=== PATIENT | female | born 1990 | race Caucasian/White ===

== ENCOUNTER 2021-01-14 17:24 | Emergency (ER) | payer OTHER, SELFPAY ==
[2021-01-14 19:29] LABS: MANUAL DIFF FLAG NO
[2021-01-14 19:34] LABS: Basophils Percent Auto 0.3 % (0-2); Eosinophils Percent Auto 0.2 % (0-4); Hematocrit 43.7 % (37.0-47.0); Hemoglobin 14.4 g/dl (12.0-16.0); Imm Gran Abs Auto 0.04 X10*3/uL (0.00-0.03); Imm Gran Pct Auto 0.4 % (0.0-0.4); Lymphocytes Absolute Auto 2.2 X10*3/uL (1.2-4.9); Lymphocytes Percent Auto 22.5 % (20-40); Mean Corpuscular Hemoglobin 29.2 pg (27.0-33.0); Mean Corpuscular Volume 88.6 fL (80.0-98.0); Mean Platelet Volume 10.1 fL (9.4-12.3); Monocytes Absolute Auto 0.3 X10*3/uL (0.1-1.2); Monocytes Percent Auto 3.1 % (2-11); Neutrophils Percent Auto 73.5 % (45-73); Platelet Count 385 X10*3/uL (160-400); Red Blood Count 4.93 X10*6/uL (4.20-5.50); Red Cell Distribution Width 13.6 % (11.0-16.0); White Blood Count 9.6 X10*3/uL (4.8-10.8)
[2021-01-14 19:50] LABS: Alanine Aminotransferase 22 U/L (0-31); Albumin Level 4.9 g/dL (3.5-5.0); Alkaline Phosphatase 77 U/L (39-117); Anion Gap 16 (12-20); Aspartate Amino Transferase 20 U/L (5-31); Bilirubin Direct 0.2 mg/dL (0.0-0.5); Bilirubin Total 0.3 mg/dL (0.0-1.0); Blood Urea Nitrogen 9 mg/dL (9-16); Calcium 9.9 mg/dL (8.4-10.2); Carbon Dioxide 25 mmol/L (22-29); Chloride 103 mmol/L (96-108); Estimated Glomerular Filt Rate > 60; Glucose Random 92 mg/dL (60-115); Lipase 12 U/L (8-78); Potassium 4.5 mmol/L (3.3-5.1); Sodium 139 mmol/L (135-145); Total Protein 8.1 g/dL (6.5-8.0)
[2021-01-14 20:53] VITALS: BP 137/72; PULSE 70; RESP 18; TEMP 36.9; O2SAT 98; BMI 33.8
--- NOTE | 2021-01-14 21:49 | ED.NAVMDI ---
HPI - Nausea/Vomiting/Diarrhea General Chief complaint: Nausea/Vomiting/Diarrhea Stated complaint: Vomiting/Preg Time Seen by Provider: 01/14/21 21:31 Source: patient Mode of arrival: ambulatory Limitations: no limitations History of Present Illness HPI Narrative: 30-year-old female here with complaints of vomiting for the last 2 days. Patient took a home test which is positive. Her last period was about 4 weeks ago. Patient tells me she has an unknown amount of pregnancies but no living children. She denies any vaginal bleeding, abdominal pain, vaginal discharge or cramping. Associated nausea: Yes Related Data Previous Rx's Medication Instructions Recorded ondansetron 4 mg disintegrating 4 mg PO Q6H PRN #10 tab 01/14/21 tablet prenat.vits,boaz,vzb-[id number]-[id number] 1 tab PO DAILY #30 tab 01/14/21 Allergies Allergy/AdvReac Type Severity Reaction Status Date / Time No Known Allergies Allergy Verified 01/14/21 21:36 Review of Systems Review of Systems: Yes all other systems are reviewed and are negative Constitutional: Constitutional: Reports no additional constitutional complaints, Denies body ache(s), Denies chills, Denies fever(s), Denies headache(s) and Denies weakness Eyes: Eyes: Reports no additional eye complaints and Denies change in vision ENT: Reports system reviewed and no additional complaints, except as documented, Denies dizziness, Denies headache(s), Denies nasal congestion, Denies nasal discharge and Denies neck pain Cardiovascular: Cardiovascular: Reports no additional cardiovascular complaints, Denies chest pain, Denies leg edema and Denies dyspnea Respiratory: Respiratory: Reports no additional respiratory complaints, Denies cough and Denies dyspnea Gastrointestinal: Gastrointestinal: Reports no additional gastrointestinal complaints, Denies abdominal pain, Denies diarrhea, Reports nausea and Reports vomiting Genitourinary: Genitourinary: Reports no additional female genitourinary complaints and Denies urinary incontinence Musculoskeletal: Musculoskeletal: Reports no additional musculoskeletal complaints, Denies back pain, Denies arthralgias, Denies joint swelling, Denies neck pain, Denies numbness and Denies tingling Integumentary/Breasts: Skin/Breast: Reports system reviewed and no additional complaints, except as docu and Denies rash Neurologic: Reports system reviewed and no additional complaints, except as documented, Denies Abnormal speech present, Denies dizziness, Denies headache(s), Denies numbness, Denies tingling and Denies weakness PMFSH Past Medical History Attestation statement: The following information was validated with the patient. Source: old records reviewed and nursing notes reviewed Medical History Drug abuse Social History Social History Patient Tobacco Use Status: Current everyday Tobacco user Use of substances other than those prescribed or required for medical reasons: No Advance Directives: No Patient : Yes Physical Exam Vital Signs: Vital Signs: Last Vital Signs Temp 98.6 F 01/14/21 23:01 Pulse 63 01/14/21 23:01 Resp 18 01/14/21 23:01 BP 128/52 L 01/14/21 23:01 Pulse Ox 100 01/14/21 23:01 Body Mass Index 33.8 Const: General: cooperative, healthy appearing, comfortable and no acute distress Orientation/consciousness: patient oriented x3 Limitations: no limitations HENMT: Head: Yes normal to inspection Ears: hearing grossly normal bilaterally General nose exam: Normal external nose present Face and sinus: Yes normal facial exam Mouth: Normal oral and palatal mucosa present Throat: Yes posterior oropharynx normal Eyes: General: appearance normal, both eyes and all related structures Pupils: Equal, round and reactive pupils present Neck: Neck: Yes normal visual inspection Chest: Chest palpation & inspection: normal inspection of the chest Resp: Effort & Inspection: normal respiratory effort Auscultation: clear to auscultation bilaterally Cardio: Rate: regular rate Rhythm: regular rhythm Peripheral pulses: Peripheral pulses 2+ throughout GI: Inspection: Yes normal to inspection Palpation (GI): Soft to palpation and nontender Auscultation: normal bowel sounds Back/Spine/Pelvis: Thoracic/Lumbar Spine: thoracic and lumbar spine normal to inspection Skin: General skin exam: no rashes or lesions noted Neuro: General: patient oriented x3, no focal motor deficits and normal sensation to monofilament Cranial nerves: Yes CN's II-XII intact bilaterally and Yes Equal, round and reactive pupils present Cognition (Neuro): normal cognition Speech: No Abnormal speech present Gait exam (Neuro): Normal gait present Motor exam (neuro): 5/5 motor strength present throughout Extrem: General: Yes normal to inspection Course Course Course Narrative: 30-year-old female here with complaints of vomiting for the last few days. Took test at home which is positive. Last menstrual cycle about 4 weeks ago. No abdominal pain or bleeding. Will check labs, UA, urine . Will place P IV and give normal saline bolus and Zofran and reassess 2350- reviewed labs are unremarkable. Urine shows 40 of ketones and so the patient received a L of fluid. She is tolerating p.o. and is feeling much improved. No need for imaging as the patient has no or plans of abdominal pain or vaginal bleeding. She can follow-up outpatient with OBGYN. Reviewed worrisome signs and symptoms of when to return to the emergency department. Comfortable discharge home. MDM - Nausea/Vomiting/Diarrhea Medical Records Attestation: I reviewed the patient's medical records. Lab Data Attestation: I reviewed the patient's lab results. Result diagrams: 01/14/21 19:13 01/14/21 19:13 Labs: Lab Results 01/14/21 01/14/21 01/14/21 Range/Units 19:13 19:13 19:13 WBC 9.6 (4.8-10.8) X10*3/uL RBC 4.93 (4.20-5.50) X10*6/uL Hgb 14.4 (12.0-16.0) g/dl Hct 43.7 (37.0-47.0) % MCV 88.6 (80.0-98.0) fL MCH 29.2 (27.0-33.0) pg MCHC 33.0 (31.0-35.0) g/dl RDW 13.6 (11.0-16.0) % Plt Count 385 (160-400) X10*3/uL MPV 10.1 (9.4-12.3) fL Immature Gran % (Auto) 0.4 (0.0-0.4) % Neut % (Auto) 73.5 H (45-73) % Lymph % (Auto) 22.5 (20-40) % [place] % (Auto) 3.1 (2-11) % Eos % (Auto) 0.2 (0-4) % Baso % (Auto) 0.3 (0-2) % Lymph # (Auto) 2.2 (1.2-4.9) X10*3/uL [place] # (Auto) 0.3 (0.1-1.2) X10*3/uL Eos # (Auto) 0.0 (0.0-0.4) X10*3/uL Baso # (Auto) 0.0 (0.0-0.2) X10*3/uL Abs Immat Gran (auto) 0.04 H (0.00-0.03) X10*3/uL Absolute Neuts (auto) 7.0 (2.0-8.3) x10*3/uL Absolute Nucleated RBC 0.000 (0.0-0.012) X10*3/uL Nucleated RBC % (auto) 0.0 (0.0-0.2) /100WBC Sodium 139 (135-145) mmol/L Potassium 4.5 (3.3-5.1) mmol/L Chloride 103 (96-108) mmol/L Carbon Dioxide 25 (22-29) mmol/L Anion Gap 16 (12-20) BUN 9 (9-16) mg/dL Creatinine 0.77 (0.5-1.4) mg/dL Estim Creat Clear Calc TNP Estimated GFR > 60 Random Glucose 92 (60-115) mg/dL Estimat Average Glucose Cancelled Hemoglobin A1c % Cancelled Calcium 9.9 (8.4-10.2) mg/dL Total Bilirubin 0.3 (0.0-1.0) mg/dL Direct Bilirubin 0.2 (0.0-0.5) mg/dL AST 20 (5-31) U/L ALT 22 (0-31) U/L Alkaline Phosphatase 77 (39-117) U/L Total Protein 8.1 H (6.5-8.0) g/dL Albumin 4.9 (3.5-5.0) g/dL Lipase 12 (8-78) U/L Beta HCG, Quant 11539 mIU/mL Urine Color Urine Appearance Urine pH (5.0-8.0) Ur Specific [place] (1.005-1.025) Urine Protein (NEG-TRACE) MG/DL Urine Glucose (UA) (NEG) MG/DL Urine Ketones (NEG) MG/DL Urine Blood (NEG) Urine Nitrite (NEG) Ur Leukocyte Esterase (NEG) Urine Test (NEGATIVE) 01/14/21 01/14/21 Range/Units 23:33 23:33 WBC (4.8-10.8) X10*3/uL RBC (4.20-5.50) X10*6/uL Hgb (12.0-16.0) g/dl Hct (37.0-47.0) % MCV (80.0-98.0) fL MCH (27.0-33.0) pg MCHC (31.0-35.0) g/dl RDW (11.0-16.0) % Plt Count (160-400) X10*3/uL MPV (9.4-12.3) fL Immature Gran % (Auto) (0.0-0.4) % Neut % (Auto) (45-73) % Lymph % (Auto) (20-40) % [place] % (Auto) (2-11) % Eos % (Auto) (0-4) % Baso % (Auto) (0-2) % Lymph # (Auto) (1.2-4.9) X10*3/uL [place] # (Auto) (0.1-1.2) X10*3/uL Eos # (Auto) (0.0-0.4) X10*3/uL Baso # (Auto) (0.0-0.2) X10*3/uL Abs Immat Gran (auto) (0.00-0.03) X10*3/uL Absolute Neuts (auto) (2.0-8.3) x10*3/uL Absolute Nucleated RBC (0.0-0.012) X10*3/uL Nucleated RBC % (auto) (0.0-0.2) /100WBC Sodium (135-145) mmol/L Potassium (3.3-5.1) mmol/L Chloride (96-108) mmol/L Carbon Dioxide (22-29) mmol/L Anion Gap (12-20) BUN (9-16) mg/dL Creatinine (0.5-1.4) mg/dL Estim Creat Clear Calc Estimated GFR Random Glucose (60-115) mg/dL Estimat Average Glucose Hemoglobin A1c % Calcium (8.4-10.2) mg/dL Total Bilirubin (0.0-1.0) mg/dL Direct Bilirubin (0.0-0.5) mg/dL AST (5-31) U/L ALT (0-31) U/L Alkaline Phosphatase (39-117) U/L Total Protein (6.5-8.0) g/dL Albumin (3.5-5.0) g/dL Lipase (8-78) U/L Beta HCG, Quant mIU/mL Urine Color YELLOW Urine Appearance CLOUDY Urine pH 6.0 (5.0-8.0) Ur Specific [place] >= 1.030 H (1.005-1.025) Urine Protein TRACE (NEG-TRACE) MG/DL Urine Glucose (UA) NEG (NEG) MG/DL Urine Ketones 40 (NEG) MG/DL Urine Blood NEG (NEG) Urine Nitrite NEG (NEG) Ur Leukocyte Esterase NEG (NEG) Urine Test POSITIVE H (NEGATIVE) Discharge Plan Discharge Clinical Impression: Patient Disposition: Home, Self-Care Instructions: (ED) Additional Instructions: Tylenol only for pain start a vitamin start with clear liquids Prescriptions: Jamari salas.vits,boaz,[id number] Tablet 1 tab PO DAILY Qty: 30 RF: 0 ondansetron 4 mg tablet,disintegrating 4 mg PO Q6H PRN (Reason: nausea and vomiting) Qty: 10 RF: 0 Referrals: Physician,Unknown J [Primary Care Provider] - 2 days Eben Ji MD [Physician] - 2 days
[2021-01-14] MEDS: 0.9 % Sodium Chloride 1,000 ML 999 ML IV (22:23)
[2021-01-14] MEDS: ondansetron HCL 4 MG/2 ML VIAL IVPUSH (22:23)
[2021-01-14 23:01] VITALS: BP 128/52; PULSE 63; RESP 18; TEMP 37; O2SAT 100
[2021-01-14 23:40] LABS: Appearance Urine CLOUDY; Color Urine YELLOW; Glucose Urine UA NEG (NEG); Leukocyte Esterase Urine NEG (NEG); Nitrite Urine NEG (NEG); Specific Gravity - Urine >= 1.030 (1.005-1.025); UPreg QC Valid YES; Urine Blood NEG (NEG); Urine Ketones 40 MG/DL (NEG); Urine Pregnancy POSITIVE (NEGATIVE); Urine Protein TRACE MG/DL (NEG-TRACE)
== END 2021-01-15 00:55 | disposition home or self-care (01) ==
PROVIDERS: Nurse Practitioner Family; Emergency Provider Emergency Medicine
DX: Z32.01 Encounter for pregnancy test, result positive (principal); R11.2 Nausea with vomiting, unspecified; F17.200 Nicotine dependence, unspecified, uncomplicated
CPT/HCPCS: 36415; 80048; 80076; 81003; 81025; 83690; 84702; 85025; 96361; 96374; 99284; J2405

== ENCOUNTER 2023-05-28 17:23 | Inpatient (IN) | payer MEDICARE, SELFPAY ==
[2023-05-28 18:12] VITALS: BP 163/89; PULSE 55; RESP 16; TEMP 36.8; O2SAT 99; BMI 22.9
--- NOTE | 2023-05-28 19:03 | PC.NURSE ---
patient appears to remain at rest hasnt given samples yet, unusual sound emenates from room, will continue to assess.
--- NOTE | 2023-05-28 19:48 | ED.GENADULT ---
HPI - General Adult General Chief complaint: Psychiatric Symptoms Stated complaint: crisis eval, wants to hurt herself Time Seen by Provider: 05/28/23 18:13 Source: patient Mode of arrival: ambulatory Limitations: no limitations History of Present Illness HPI narrative: 32-year-old female with past medical history of bipolar and substance abuse presents to the ED for suicidal and also randomly going to people course not answer many questions. Patient was seen at [facility] for similiar presentsation and was discharged yesterday. As per patient's sister patient started having symptoms when her boyfriend became sick and sepsis in hospital. Patient's psych meds and does not follow-up with a therapist. She states patient also IV drug use Related Data Previous Rx's ?Medication ?Instructions ?Recorded ondansetron 4 mg disintegrating 4 mg PO Q6H PRN nausea and 01/14/21 tablet vomiting #10 tabs prenat.vits,boaz,jhk-mxkv-cjmxp 1 tab PO DAILY #30 tabs 01/14/21 Allergies Allergy/AdvReac Type Severity Reaction Status Date / Time No Known Allergies Allergy Verified 05/28/23 18:13 Review of Systems Review of Systems: Aggressive bipolar manic. Going into random cars Yes all other systems are reviewed and are negative [facility] Past Medical History Medical History (Updated 05/30/23 @ 15:58 by James Araya MD) Drug abuse Social History Social History (Updated 05/29/23 @ 23:05 by Quentin Bah RN) Household Members: None Housing: Homeless Do you presently have visiting nurse or other home services: No Alcohol intake: current Alcohol intake frequency: does not drink Patient Tobacco Use Status: Current everyday Tobacco user Tobacco use type: Cigarette Smoked in Last 30 Days: Yes e-Cigarette/Vaping Use: Never Used Patient Interested in Nicotine Replacement: Yes Patient Given Instructions on How to Stop Smoking: No Second Hand Smoke Exposure: No Use of substances other than those prescribed or required for medical reasons: Yes Substance Use Type: Crack/Cocaine and Heroin Substance Use Frequency: Daily Last Used Substance: Days (ago) Currently Displaying Signs/Symptoms of Drug Intoxication Withdrawal: Yes Any prior treatment program specific to substance use: Yes Have you been hit, kicked, punched, or otherwise hurt by someone within the past year? If so, by whom?: No Do you feel safe in your current relationship?: No Current Relationship Is there a partner from a previous relationship who is making you feel unsafe now?: No Are you made to feel afraid or neglected: No Advance Directives: No Advance Directives Information Provided: No Do you have thoughts of harming others: None Do you have a plan to hurt others: No Plan Recently lost weight without trying: Unsure Eating poorly because of decreased appetite: No Nutrition Risks: No Nutritional Risk Patient : No : No Poor oral hygiene: No Physical Exam ED Vital Signs: Vital Signs - 24 hr 05/28/23 18:12 05/29/23 05:49 05/29/23 07:15 Temperature 98.2 F Pulse Rate 55 Respiratory Rate 16 16 20 Blood Pressure 163/89 H Pulse Oximetry 99 Oxygen Delivery Method Room Air 05/29/23 08:54 Temperature 98.6 F Pulse Rate 53 Respiratory Rate 14 Blood Pressure 142/72 H Pulse Oximetry 95 Oxygen Delivery Method Room Air BMI result Body Mass Index 22.9 Const General: cooperative, healthy appearing, comfortable, no acute distress, well developed, alert, awake and Physically active [facility] Head: Yes normal to inspection, Yes No palpable skull fracture present, Yes normocephalic and Yes atraumatic Eyes General: appearance normal, both eyes and all related structures Neck Neck: Yes normal visual inspection, Yes full ROM, Yes no lymphadenopathy, Yes no meningeal signs, Yes trachea midline, Yes supple, No anterior neck swelling and No tender Chest Chest palpation & inspection: normal inspection of the chest and normal palpation of entire chest wall Resp Effort & Inspection: normal respiratory effort and able to speak in complete sentences Auscultation: clear to auscultation bilaterally Cardio Jugular venous distension: no JVD Heart sounds: S1 normal heart sound present and S2 normal heart sound present GI Inspection: Yes normal to inspection Palpation (GI): Soft to palpation, not firm, nontender, no guarding and not rigid General: No CVA tenderness and Yes no CVA tenderness Back/Spine/Pelvis Back: no CVA tenderness, No CVA tenderness and No back tenderness Skin General skin exam: no rashes or lesions noted, elasticity normal and turgor normal Neuro Other: internally preoccupied. General: gait normal, tone normal, moves all extremities, Normal light touch and pain sensation, no meningeal signs, no focal motor deficits, CN's II-XI intact bilaterally and normal sensation to monofilament Extrem General: Yes normal to inspection, Yes full ROM and Yes capillary refill normal Psych Other: Patient seems preoccupied and manic. Patient refused to me I can not Appearance: grossly normal and well kempt Course Course Course Narrative: Reevaluation(s) Reevaluation #1: The patient is a 32-year-old female being held in our Behavioral pod awaiting inpatient psychiatric hospitalization. The patient has been seen by our care team and they have recommended inpatient hospitalization. The patient has seemed disorganized and behaving bizarrely. During the day today the patient has been very quiet with no complaints. Vital signs have been stable. The patient has been afebrile. The patient was quiet and has no complaints. We will continue current management awaiting disposition by the care team. Time: 15:24 Medications Administered Generic Name Dose Route Start Last Admin Trade Name Freq PRN Reason Stop Dose Admin Acetaminophen 650 mg 05/29/23 16:45 05/30/23 10:12 Acetaminophen 325 Mg Tablet PO 650 mg Q6H PRN Administration Headache/Pain Mild Scale (1-3) Al Hydroxide/Mg Hydroxide 30 ml 05/29/23 16:45 05/30/23 08:48 Magnesium Hydrox/Alum Hydrox 30 Ml Oral.Susp PO 30 ml Q6H PRN Administration Heartburn/Nausea Clonidine HCl 0.1 mg 05/29/23 16:50 05/30/23 20:06 Clonidine Hcl 0.1 Mg Tablet PO 0.1 mg BID PRN Administration withdrawal Protocol Folic Acid 1 mg 05/30/23 09:00 05/30/23 08:47 Folic Acid 1 Mg Tablet PO 1 mg DAILY NATALY Administration Haloperidol 5 mg 05/29/23 16:49 05/30/23 14:27 Haloperidol 5 Mg Tablet PO 5 mg Q4H PRN Administration valerie,psychosis,agitation Hydroxyzine HCl 50 mg 05/30/23 13:49 05/30/23 20:06 Hydroxyzine Hcl 50 Mg Tablet PO 50 mg Q6H PRN Administration Anxiety Lorazepam 1 mg 05/29/23 16:54 05/30/23 20:05 Lorazepam 1 Mg Tablet PO 1 mg Q4H PRN Administration severe anxiety Multivitamins/Vitamin C 1 tab 05/30/23 09:00 05/30/23 08:47 Multivitamin Tablet PO 1 tab DAILY NATALY Administration Nicotine Polacrilex 4 mg 05/30/23 00:55 05/30/23 10:36 Nicotine Polacrilex 2 Mg Gum BUCCAL 4 mg Q2H PRN Administration Nicotine Cravings Quetiapine Fumarate 100 mg 05/30/23 21:00 05/30/23 20:06 Quetiapine Fumarate 100 Mg Tablet PO 100 mg BEDTIME NATALY Administration Thiamine HCl 100 mg 05/30/23 09:00 05/30/23 08:47 Thiamine Hcl 100 Mg Tablet PO 100 mg DAILY NATALY Administration Trazodone HCl 50 mg 05/29/23 16:45 05/30/23 20:05 Trazodone Hcl 50 Mg Tablet PO 50 mg BEDTIME MRX1 PRN Administration Insomnia Discontinued Medications Generic Name Dose Route Start Last Admin Trade Name Freq PRN Reason Stop Dose Admin Clonidine HCl 0.2 mg 05/30/23 13:48 05/30/23 14:21 Clonidine Hcl 0.2 Mg Tablet PO 05/30/23 13:49 0.2 mg ONCE ONE Administration Protocol Haloperidol 5 mg 05/29/23 01:45 05/29/23 01:49 Haloperidol 5 Mg Tablet PO 05/29/23 01:46 5 mg ONCE ONE Administration Hydroxyzine HCl 25 mg 05/29/23 16:45 05/30/23 04:38 Hydroxyzine Hcl 25 Mg Tablet PO 25 mg Q6H PRN Administration Anxiety Hydroxyzine HCl 50 mg 05/30/23 13:48 05/30/23 14:21 Hydroxyzine Hcl 50 Mg Tablet PO 05/30/23 13:49 50 mg ONCE ONE Administration Lorazepam 2 mg 05/28/23 22:12 05/28/23 22:15 Lorazepam 1 Mg Tablet PO 05/28/23 22:13 2 mg ONCE ONE Administration Lorazepam 2 mg 05/29/23 01:46 05/29/23 01:48 Lorazepam 1 Mg Tablet PO 05/29/23 01:47 2 mg ONCE ONE Administration Methadone HCl 40 mg 05/30/23 14:30 05/30/23 14:21 Methadone Hcl 20 Mg/2 Ml Oral.Conc PO 05/30/23 14:31 40 mg DAILY@1430 NATALY Administration Nicotine 21 mg 05/29/23 17:35 05/29/23 18:16 Nicotine 21 Mg Patch.Td24 TRANSDERMA 05/29/23 17:36 21 mg ONCE ONE Administration Nicotine Polacrilex 2 mg 05/29/23 17:35 05/29/23 18:15 Nicotine Polacrilex 2 Mg Gum BUCCAL 05/29/23 17:36 2 mg ONCE ONE Administration Medical Decision Making Medical Decision Making [facility] Narrative: 32-year-old female with bipolar noncompliant with psych meds, noncompliant with has history of substance abuse noted having some manic symptoms when her boyfriend admitted for sepsis. Sister states patient is going into random cares. Sister states when patient gets triggered or high stress in her life she presents with this episode. Patient was seen yesterday by [facility] with similar presentation and discharged. As per reviewed notes care team evaluated patient and recommends substance abuse placement but patient refused. Patient is not suicidal or homicidal. White blood cell [place] [facility] [place] [id number]. [facility] states in notes patient's bizarre psychotic behavior was due to drug abuse. At [facility] she admitted to use cocaine and heroin for the past 48 hours. This was on 05/28/2023. At [facility] recommend patient taking Vistaril 50 mg p.o. q.6 p.r.n., trazodone 50 mg p.o. daily at bedtime and Seroquel 50 mg p.o. q.6 p.r.n. for agitation. [facility] also recommended in the notes Thorazine 50 mg p.o. IM q.6 p.r.n. for severe agitation. Patient awaiting care team evaluation. Differential Diagnosis Differential Diagnoses: The differential diagnosis associated with the presentation includes (Substance induced psychosis, manic, bipolar) Admission/Observation Consideration of admission/observation: Escalation of care including admission/observation considered Consult Healthcare Provider Management of the patient was discussed with: Film Color Tester ([place]) Lab Data 05/29/23 00:18 05/29/23 00:18 Labs: Lab Results 05/28/23 05/28/23 05/29/23 Range/Units 19:59 20:22 00:18 WBC 15.7 H (4.8-10.8) X10*3/uL RBC 5.00 (4.20-5.50) X10*6/uL Hgb 14.3 (12.0-16.0) g/dl Hct 41.4 (37.0-47.0) % MCV 82.8 (80.0-98.0) fL MCH 28.6 (27.0-33.0) pg MCHC 34.5 (31.0-35.0) g/dl RDW 13.4 (11.0-16.0) % Plt Count 490 H D (160-400) X10*3/uL MPV 9.8 (9.4-12.3) fL Immature Gran % (Auto) 1.4 H (0.0-0.4) % Neut % (Auto) 64.9 (45-73) % Lymph % (Auto) 26.2 (20-40) % [place] % (Auto) 7.0 (2-11) % Eos % (Auto) 0.1 (0-4) % Baso % (Auto) 0.4 (0-2) % Lymph # (Auto) 4.1 (1.2-4.9) X10*3/uL [place] # (Auto) 1.1 (0.1-1.2) X10*3/uL Eos # (Auto) 0.0 (0.0-0.4) X10*3/uL Baso # (Auto) 0.1 (0.0-0.2) X10*3/uL Abs Immat Gran (auto) 0.22 H (0.00-0.03) X10*3/uL Absolute Neuts (auto) 10.2 H (2.0-8.3) x10*3/uL Absolute Nucleated RBC 0.000 (0.0-0.012) X10*3/uL Nucleated RBC % (auto) 0.0 (0.0-0.2) /100WBC Sodium 141 (135-145) mmol/L Potassium 4.1 (3.3-5.1) mmol/L Chloride 106 (96-108) mmol/L Carbon Dioxide 21 L (22-29) mmol/L Anion Gap 18 (12-20) BUN 23 H (9-16) mg/dL Creatinine 0.70 (0.5-1.4) mg/dL Estim Creat Clear Calc 119.4 Estimated GFR > 60 Random Glucose 93 (60-115) mg/dL Calcium 9.5 (8.4-10.2) mg/dL Total Bilirubin 0.4 (0.0-1.0) mg/dL AST 29 (5-31) U/L ALT 15 (0-31) U/L Alkaline Phosphatase 61 (39-117) U/L Total Protein 8.1 H (6.5-8.0) g/dL Albumin 4.6 (3.5-5.0) g/dL Urine Color Urine Appearance Urine pH (5.0-9.0) Ur Specific Starlight (1.005-1.025) Urine Protein (Neg-Trace) mg/dL Urine Glucose (UA) (Negative) mg/dL Urine Ketones (Negative) mg/dL Urine Blood (Negative) Urine Nitrite (Negative) Ur Leukocyte Esterase (Negative) Urine RBC (0-2) /HPF Urine WBC (0-5) /HPF Ur Squamous Epith Cells (0-2) /HPF Calcium Oxalate Crystal Urine Bacteria (None Seen) Hyaline Casts (0-2) /LPF Urine Opiates Screen (Not Detect) Urine Fentanyl Screen (Not Detect) Ur Barbiturates Screen (Not Detect) Ur Phencyclidine Scrn (Not Detect) Ur Amphetamines Screen (Not Detect) U Benzodiazepines Scrn (Not Detect) Urine Cocaine Screen (Not Detect) U Marijuana (THC) Screen (Not Detect) Ethyl Alcohol < 10 mg/dL COVID-19 ([facility]IA[facility]) Cancelled Negative COVID-19 Clin Com Cancelled See Note 05/29/23 05/29/23 Range/Units 11:18 11:19 WBC (4.8-10.8) X10*3/uL RBC (4.20-5.50) X10*6/uL Hgb (12.0-16.0) g/dl Hct (37.0-47.0) % MCV (80.0-98.0) fL MCH (27.0-33.0) pg MCHC (31.0-35.0) g/dl RDW (11.0-16.0) % Plt Count (160-400) X10*3/uL MPV (9.4-12.3) fL Immature Gran % (Auto) (0.0-0.4) % Neut % (Auto) (45-73) % Lymph % (Auto) (20-40) % [place] % (Auto) (2-11) % Eos % (Auto) (0-4) % Baso % (Auto) (0-2) % Lymph # (Auto) (1.2-4.9) X10*3/uL [place] # (Auto) (0.1-1.2) X10*3/uL Eos # (Auto) (0.0-0.4) X10*3/uL Baso # (Auto) (0.0-0.2) X10*3/uL Abs Immat Gran (auto) (0.00-0.03) X10*3/uL Absolute Neuts (auto) (2.0-8.3) x10*3/uL Absolute Nucleated RBC (0.0-0.012) X10*3/uL Nucleated RBC % (auto) (0.0-0.2) /100WBC Sodium (135-145) mmol/L Potassium (3.3-5.1) mmol/L Chloride (96-108) mmol/L Carbon Dioxide (22-29) mmol/L Anion Gap (12-20) BUN (9-16) mg/dL Creatinine (0.5-1.4) mg/dL Estim Creat Clear Calc Estimated GFR Random Glucose (60-115) mg/dL Calcium (8.4-10.2) mg/dL Total Bilirubin (0.0-1.0) mg/dL AST (5-31) U/L ALT (0-31) U/L Alkaline Phosphatase (39-117) U/L Total Protein (6.5-8.0) g/dL Albumin (3.5-5.0) g/dL Urine Color Dark Yellow Urine Appearance Cloudy Urine pH 6.0 (5.0-9.0) Ur Specific Starlight >= 1.030 H (1.005-1.025) Urine Protein 30 (1+) H (Neg-Trace) mg/dL Urine Glucose (UA) Negative (Negative) mg/dL Urine Ketones 40 (Negative) mg/dL Urine Blood Negative (Negative) Urine Nitrite Negative (Negative) Ur Leukocyte Esterase Trace H (Negative) Urine RBC 0-2 (0-2) /HPF Urine WBC 0-5 (0-5) /HPF Ur Squamous Epith Cells 6-10 (0-2) /HPF Calcium Oxalate Crystal Present Urine Bacteria 4+ (None Seen) Hyaline Casts 0-2 (0-2) /LPF Urine Opiates Screen Not Detected (Not Detect) Urine Fentanyl Screen POSITIVE H (Not Detect) Ur Barbiturates Screen Not Detected (Not Detect) Ur Phencyclidine Scrn Not Detected (Not Detect) Ur Amphetamines Screen Not Detected (Not Detect) U Benzodiazepines Scrn POSITIVE H (Not Detect) Urine Cocaine Screen POSITIVE H (Not Detect) U Marijuana (THC) Screen Not Detected (Not Detect) Ethyl Alcohol mg/dL COVID-19 ([facility]) COVID-19 Clin Com Discharge Plan Discharge Clinical Impression: Bipolar disorder Patient Disposition: Admitted As Inpatient Interventions: Admission Worksheet (ED) Last Done: 05/29/23 18:22 Discharge Date/Time: 05/29/23 19:00
[2023-05-28 20:42] LABS: COVID-19 Test Negative (Negative); IDNOW Serial# 58CA691E
--- NOTE | 2023-05-28 21:50 | MHC.EDTECH ---
three different techs attempted to draw blood on pt. pt difficult stick. rn made aware.
--- NOTE | 2023-05-28 22:05 | PC.NURSE ---
three techs have attempted to draw client and unsuccessful.
[2023-05-28] MEDS: LORazepam 1 MG TABLET 2 MG PO (22:15)
--- NOTE | 2023-05-28 23:20 | PC.NURSE ---
t/w tried to explain to client that she may not leave, client doesnt seems to grasp the concept but did seem to slow her requests for assistance to call sister which she had done about 10 times in last 30 minutes. (no shutoff switch for phone) awaiting to convey to provider regarding need for section 12.
[2023-05-29 00:28] LABS: Basophils Absolute Auto 0.1 X10*3/uL (0.0-0.2); Basophils Percent Auto 0.4 % (0-2); Eosinophils Percent Auto 0.1 % (0-4); Hematocrit 41.4 % (37.0-47.0); Hemoglobin 14.3 g/dl (12.0-16.0); Imm Gran Abs Auto 0.22 X10*3/uL (0.00-0.03); Imm Gran Pct Auto 1.4 % (0.0-0.4); Lymphocytes Absolute Auto 4.1 X10*3/uL (1.2-4.9); Lymphocytes Percent Auto 26.2 % (20-40); Mean Corpuscular HGB Conc 34.5 g/dl (31.0-35.0); Mean Corpuscular Hemoglobin 28.6 pg (27.0-33.0); Mean Corpuscular Volume 82.8 fL (80.0-98.0); Mean Platelet Volume 9.8 fL (9.4-12.3); Monocytes Absolute Auto 1.1 X10*3/uL (0.1-1.2); Neutrophils Absolute Auto 10.2 x10*3/uL (2.0-8.3); Neutrophils Percent Auto 64.9 % (45-73); Platelet Count 490 X10*3/uL (160-400); Red Cell Distribution Width 13.4 % (11.0-16.0); White Blood Count 15.7 X10*3/uL (4.8-10.8)
[2023-05-29 00:42] LABS: Alanine Aminotransferase 15 U/L (0-31); Albumin Level 4.6 g/dL (3.5-5.0); Alkaline Phosphatase 61 U/L (39-117); Anion Gap 18 (12-20); Aspartate Amino Transferase 29 U/L (5-31); Bilirubin Total 0.4 mg/dL (0.0-1.0); Blood Urea Nitrogen 23 mg/dL (9-16); Calcium 9.5 mg/dL (8.4-10.2); Carbon Dioxide 21 mmol/L (22-29); Chloride 106 mmol/L (96-108); Creatinine Clr Calc Pharmacy 119.4; Estimated Glomerular Filt Rate > 60; Ethanol < 10 mg/dL; Glucose Random 93 mg/dL (60-115); Potassium 4.1 mmol/L (3.3-5.1); Sodium 141 mmol/L (135-145); Total Protein 8.1 g/dL (6.5-8.0)
--- NOTE | 2023-05-29 01:00 | PC.NURSE ---
patient climbed on bed, reluctantly redirectable my traffickers , with much redirects patient got down from standing on bed frame and looking out window.
[2023-05-29] MEDS: LORazepam 1 MG TABLET 2 MG PO (01:48)
[2023-05-29] MEDS: HaloperidoL 5 MG TABLET PO (01:49)
[2023-05-29 05:49] VITALS: RESP 16
[2023-05-29 07:15] VITALS: RESP 20
--- NOTE | 2023-05-29 08:39 | MHC.EDTECH ---
when documenting vitals this AM only pt's respirations were documented d/t pt sleeping. respiration are even and unlabored. no signs of distress, rn aware.
--- NOTE | 2023-05-29 08:48 | PC.NURSE ---
CARE TEAM AT BEDSIDE. PT IS AWARE OF PLAN OF CARE.
[2023-05-29 08:54] VITALS: BP 142/72; PULSE 53; RESP 14; TEMP 37; O2SAT 95
--- NOTE | 2023-05-29 08:56 | PC.NURSE ---
PT IS A/O X 1 AT THIS TIME. PT IS LYING ON HER LEFT SIDE FACING THE WALL. PT REFUSED TO ANSWER ANY QUESTIONS EXCEPT WHEN ASKED IF SHE WAS HEARING ANY VOICES OR ANY VISUAL HALLUCINATION PT DENIED. WILL CONTINUE TO MONITOR.
--- NOTE | 2023-05-29 09:20 | PC.NURSE ---
PT'S SISTER AARON ([phone]) STATING THAT SHE IS THE PT'S HCP. STATUS UPDATE WAS GIVEN TO PT'S SISTER.
--- NOTE | 2023-05-29 10:14 | PC.NURSE ---
PT WAS OOB SPOKE WITH THE CARE TEAM. PT IS AWARE OF PLAN OF CARE. PT IS SITTING AT THE PHONE TRYING TO CALL HER SISTER. THE PT HAS RETURNED TO HER ROOM AND IS LYING IN BED. PT IS A/O X 3. PT IS SPEAKING AT THIS TIME. PT AT TIMES CHOOSES NOT TO SPEAK AT TIMES. WILL CONTINUE TO MONITOR.
[2023-05-29 11:34] LABS: Amphetamine Screen Urine Not Detected (Not Detect); Barbiturates, Urine Not Detected (Not Detect); Benzodiazepines Screen Urine POSITIVE (Not Detect); Cannabinoid Screen Urine Not Detected (Not Detect); Cocaine Screen Urine POSITIVE (Not Detect); Fentanyl, urine POSITIVE (Not Detect); Opiate Screen Urine Not Detected (Not Detect); Phencyclidine Screen Urine Not Detected (Not Detect)
[2023-05-29 11:36] LABS: Appearance Urine Cloudy; Color Urine Dark Yellow; Glucose Urine UA Negative (Negative); Leukocyte Esterase Urine Trace (Negative); Nitrite Urine Negative (Negative); Specific Gravity - Urine >= 1.030 (1.005-1.025); UMIC TRIGGER UACC YES; Urine Blood Negative (Negative); Urine Ketones 40 mg/dL (Negative); Urine Protein 30 (1+) mg/dL (Neg-Trace)
--- NOTE | 2023-05-29 12:14 | ECG_ITS ---
Test Reason : CHECK QT INTERVAL Blood Pressure : / mmHG Vent. Rate : 069 BPM Atrial Rate : 069 BPM P-R Int : 132 ms QRS Dur : 090 ms QT Int : 440 ms P-R-T Axes : 072 053 060 degrees QTc Int : 471 ms Normal sinus rhythm with sinus arrhythmia Possible Left atrial enlargement Borderline ECG No previous ECGs available Referred By: Franki Garcia Electronically Signed By:ERIN MCADAMS MD
[2023-05-29 12:28] LABS: Bacteria Urine 4+ (None Seen); Calcium Oxalate Crystals Urine Present; Hyaline Casts Urine 0-2 /LPF (0-2); RBC Urine 0-2 /HPF (0-2); WBC Urine 0-5 /HPF (0-5)
[2023-05-29 15:26] VITALS: BP 138/82; PULSE 55; RESP 17; TEMP 36.8; O2SAT 99
--- NOTE | 2023-05-29 15:38 | PC.NURSE ---
PT IS SLEEPING RESP EVEN AND UNLABORED. WILL CONTINUE TO MONITOR.
--- NOTE | 2023-05-29 16:00 | PC.NURSE ---
PT'S SISTER (AARON, ) IS AT BEDSIDE. PT IS REQUESTING TO HAVE A TV TO LOOK AT SO PT WILL BE MOVED TO ED POD BED 2. PT/SISTER AWARE OF PLAN OF CARE.
--- NOTE | 2023-05-29 16:08 | PC.NURSE ---
PT IS A/O X 3 NO SOB/DESIRAE NOTED SPEAKS IN FULL SENTENCES. PT DENIES ANY SI/HI. PT AWARE OF PLAN OF CARE. WILL CONTINUE TO MONITOR.
--- NOTE | 2023-05-29 16:10 | MHC.EDTECH ---
PT AMBULATES INDEPENDENTLY, GATE STEADY TO BATHROOM WITH HER SISTER FOR A SHOWER.
--- NOTE | 2023-05-29 16:31 | MHC.EDTECH ---
PT SHOWERED AND WASHED HER HAIR WITH SISTERS HELP. PT MOVED TO [facility] FROM [facility] BECAUSE OF TELEVISION.
--- NOTE | 2023-05-29 18:07 | PC.NURSE ---
RN to RN lorraine Page on M3
[2023-05-29] MEDS: Nicotine Polacrilex 2 MG GUM BUCCAL (18:15)
[2023-05-29] MEDS: Nicotine 21 MG PATCH.TD24 TRANSDERMA (18:16)
--- NOTE | 2023-05-29 18:21 | PC.NURSE ---
pt has been calm since this rn arrival at 5p. sister at bedside. pt requested and received ativan and smoking cessation. No tremor. Skin pwd. cooperative and able to follow commands for transfer in to M3.
[2023-05-29 18:30] VITALS: BP 125/78; PULSE 92; RESP 15; TEMP 36.7; O2SAT 98
[2023-05-29 19:11] VITALS: BMI 22.9
--- NOTE | 2023-05-29 19:22 | PC.ADMIT ---
Pt entered this unit at 1825, on a CV, via w/c from [facility] ED POD. Pt is a 32 year old, Congolese speaking female. 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 When patient entered the unit, she was very anxious and disinterested in participating in the admission assessments. Skin check reveled several scabbed over small areas on UE & LE due to IV drug use. Several small bruises noted on R UE as well. Pt makes poor eye contact, speaks in a normal volume and tone. Pt states that her father was recently diagnosed with lung cancer, and this has been really difficult for her. She is newly homeless, however, per crisis eval, her sister states that she will welcome patient into her home once she stabilizes. Pt requested anxiety medications, and when this journalists and other writers brought them to her shortly after the request, patient was found sleeping.
[2023-05-29] MEDS: hydrOXYzine HCL 25 MG TABLET PO (20:36)
[2023-05-29] MEDS: cloNIDine HCL 0.1 MG TABLET PO (20:36)
[2023-05-29] MEDS: LORazepam 1 MG TABLET PO (20:40)
[2023-05-29] MEDS: traZODone HCL 50 MG TABLET PO (22:56)
[2023-05-30] MEDS: HaloperidoL 5 MG TABLET PO ×2 (00:30→14:27)
[2023-05-30] MEDS: traZODone HCL 50 MG TABLET PO ×2 (00:32→20:05)
[2023-05-30] MEDS: LORazepam 1 MG TABLET PO ×4 (00:33→20:05)
[2023-05-30] MEDS: hydrOXYzine HCL 25 MG TABLET PO (04:38)
[2023-05-30 08:00] VITALS: BP 161/84; PULSE 66; RESP 14; TEMP 37.3; O2SAT 98
[2023-05-30] MEDS: cloNIDine HCL 0.1 MG TABLET PO ×2 (08:47→20:06)
[2023-05-30] MEDS: Multivitamin TABLET 1 TAB PO (08:47)
[2023-05-30] MEDS: Folic Acid 1 MG TABLET PO (08:47)
[2023-05-30] MEDS: Thiamine HCL 100 MG TABLET PO (08:47)
[2023-05-30] MEDS: Magnesium Hydrox/Alum Hydrox 30 ML ORAL.SUSP PO (08:48)
[2023-05-30] MEDS: Acetaminophen 325 MG TABLET 650 MG PO (10:12)
[2023-05-30] MEDS: Nicotine Polacrilex 2 MG GUM 4 MG BUCCAL (10:36)
--- NOTE | 2023-05-30 11:34 | P.HPPS_ITS ---
HPI Date of Service: 05/30/23 Chief Complaint: crisis eval, wants to hurt herself Sources of Information: patient interviewed, chart reviewed and crisis/core team assessment reviewed HPI Subjective Notes: Conditional Voluntary Narrative: As per ED triage note, patient was reporting suicidal thoughts of overdosing. Was at father's house jumping into people's cars and acting bizarrely. Had just been discharged from [facility]. As per ED Note 05/28/23: 32-year-old female with past medical history of bipolar and substance abuse presents to the ED for suicidal and also randomly going to people course not answer many questions. Patient was seen at [facility] for similiar presentsation and was discharged yesterday. As per patient's sister patient started having symptoms when her boyfriend became sick and sepsis in hospital. Patient's psych meds and does not follow-up with a therapist. She states patient also IV drug use Today: Patient reports little recollection of admission circumstances. Did endorse feeling down and depressed recently and intermittent suicidal thoughts. Sleep has been poor. Denied auditory hallucinations. Recent substance use unclear i.e. 1 last used anything. Tox was pes positive for cocaine, heroin and fentanyl, which patient openly endorses having issues with. Met with the addictions Team today and methadone 40 mg recommended and leasing with prior program at [facility] and. Patient reports being on methadone through [facility] in over 1 year ago. Reports wanting help with medications and detoxing and stabilizing. Reports Seroquel, hydroxyzine, clonidine were helpful in the past ? 3-4 months ago during a [facility] treatment. Also mentioned Klonopin and Ativan. No alcohol use. Stressors include father being diagnosed with stage III lung cancer 6 months ago. Reports being very close to him as he raise both her and patient's sister who is 1 year younger. Sister works for [employer] and supportive of patient. Unclear work situation as collateral mentioned patient had not been working, but was running down the street recently stating she had to go to work. 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 Overall agreed to methadone 40 mg for detox. Uncertainty regarding long-term for/maintenance treatment for opioid use disorder. Will start Seroquel, Vistaril and clonidine. Reported Seroquel dose in the past was 100 mg in the morning and 300 mg at bedtime i.e. during previous Section 35 treatment and reports this was very helpful her move, sleep anxiety. Will start 100 mg bedtime and increase by 100 mg per day. Past Psychiatric History: Reports diagnosis of bipolar disorder, multiple personality disorder and PTSD. On further exploration, patient does not have any evidence of hypomanic or manic episodes and describes getting angry quickly or acting bizarrely for example going into people's cars. Reports these do not happen when she is sober. Does endorse history of depression. To suicide attempts and the last was a number of years ago by overdose. Does not have current treaters. Recently at [facility] for 1 day with bizarre behavior. Patient reports being on methadone through [facility] in over 1 year ago. Reports wanting help with medications and detoxing and stabilizing. Reports Seroquel, hydroxyzine, clonidine were helpful in the past ? 3-4 months ago during a Section 35 treatment. Also mentioned Klonopin and Ativan Medical Evaluation Reviewed: Yes [facility] Medical History (Updated 05/30/23 @ 15:58 by James Araya MD) Drug abuse Social History: Reports currently living with sister. Sister supportive. Single. No children. Denied legal issues. Reports some college. 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 Adamantly denied any issues with alcohol. Did endorse having a trauma history but reluctant to discuss same. Stressors include her father being diagnosed with stage III lung cancer 6 months ago. Substance History: Opioid and cocaine use disorder. Was sober for 3 years and relapsed in 2020. Patient reports being on methadone through [facility] in over 1 year ago. Reports wanting help with medications and detoxing and stabilizing. Reports Seroquel, hydroxyzine, clonidine were helpful in the past ? 3-4 months ago during a Section 35 treatment. Also mentioned Klonopin and Ativan Trauma History: Did endorse having a trauma history but reluctant to discuss same. Diagnostics Vital Signs (24Hr): Vital Signs - 24 hr 05/29/23 15:26 05/29/23 18:30 05/30/23 08:00 Temperature 98.3 F 98.1 F 99.1 F Pulse Rate 55 92 66 Respiratory Rate 17 15 14 Blood Pressure 138/82 125/78 161/84 H Pulse Oximetry 99 98 98 Oxygen Delivery Method Room Air Room Air Room Air BMI result Body Mass Index 22.9 Labs 05/29/23 00:18 05/29/23 00:18 Labs: Laboratory Results - last 48 hr 05/28/23 05/28/23 05/29/23 19:59 20:22 00:18 WBC 15.7 H RBC 5.00 Hgb 14.3 Hct 41.4 MCV 82.8 MCH 28.6 MCHC 34.5 RDW 13.4 Plt Count 490 H D MPV 9.8 Immature Gran % (Auto) 1.4 H Neut % (Auto) 64.9 Lymph % (Auto) 26.2 [place] % (Auto) 7.0 Eos % (Auto) 0.1 Baso % (Auto) 0.4 Lymph # (Auto) 4.1 [place] # (Auto) 1.1 Eos # (Auto) 0.0 Baso # (Auto) 0.1 Abs Immat Gran (auto) 0.22 H Absolute Neuts (auto) 10.2 H Absolute Nucleated RBC 0.000 Nucleated RBC % (auto) 0.0 Sodium 141 Potassium 4.1 Chloride 106 Carbon Dioxide 21 L Anion Gap 18 BUN 23 H Creatinine 0.70 Estim Creat Clear Calc 119.4 Estimated GFR > 60 Random Glucose 93 Calcium 9.5 Total Bilirubin 0.4 AST 29 ALT 15 Alkaline Phosphatase 61 Total Protein 8.1 H Albumin 4.6 Urine Color Urine Appearance Urine pH Ur Specific Wisdom Urine Protein Urine Glucose (UA) Urine Ketones Urine Blood Urine Nitrite Ur Leukocyte Esterase Urine RBC Urine WBC Ur Squamous Epith Cells Calcium Oxalate Crystal Urine Bacteria Hyaline Casts Urine Opiates Screen Urine Fentanyl Screen Ur Barbiturates Screen Ur Phencyclidine Scrn Ur Amphetamines Screen U Benzodiazepines Scrn Urine Cocaine Screen U Marijuana (THC) Screen Ethyl Alcohol < 10 COVID-19 (GIANA) Cancelled Negative COVID-19 Clin Com Cancelled See Note 05/29/23 05/29/23 11:18 11:19 WBC RBC Hgb Hct MCV MCH MCHC RDW Plt Count MPV Immature Gran % (Auto) Neut % (Auto) Lymph % (Auto) [place] % (Auto) Eos % (Auto) Baso % (Auto) Lymph # (Auto) [place] # (Auto) Eos # (Auto) Baso # (Auto) Abs Immat Gran (auto) Absolute Neuts (auto) Absolute Nucleated RBC Nucleated RBC % (auto) Sodium Potassium Chloride Carbon Dioxide Anion Gap BUN Creatinine Estim Creat Clear Calc Estimated GFR Random Glucose Calcium Total Bilirubin AST ALT Alkaline Phosphatase Total Protein Albumin Urine Color Dark Yellow Urine Appearance Cloudy Urine pH 6.0 Ur Specific Wisdom >= 1.030 H Urine Protein 30 (1+) H Urine Glucose (UA) Negative Urine Ketones 40 Urine Blood Negative Urine Nitrite Negative Ur Leukocyte Esterase Trace H Urine RBC 0-2 Urine WBC 0-5 Ur Squamous Epith Cells 6-10 Calcium Oxalate Crystal Present Urine Bacteria 4+ Hyaline Casts 0-2 Urine Opiates Screen Not Detected Urine Fentanyl Screen POSITIVE H Ur Barbiturates Screen Not Detected Ur Phencyclidine Scrn Not Detected Ur Amphetamines Screen Not Detected U Benzodiazepines Scrn POSITIVE H Urine Cocaine Screen POSITIVE H U Marijuana (THC) Screen Not Detected Ethyl Alcohol COVID-19 (GIANA) COVID-19 Clin Com Meds/Allergies Allergies Allergies Allergy/AdvReac Type Severity Reaction Status Date / Time No Known Allergies Allergy Verified 05/28/23 18:13 Mental Status Exam Mental Status Exam Narrative: Pleasant. Engaged. Hospital clothing. Fairly presented. Alert and oriented. Anxious. Endorse some hopelessness. Denied current SI. No HI. No agitation or psychosis. Insight judgment fair Assessment & Plan Assessment & Plan (1) PTSD (post-traumatic stress disorder): Status: Acute Code(s): F43.10 - Post-traumatic stress disorder, unspecified (2) Opioid use disorder: Status: Acute Code(s): F11.90 - Opioid use, unspecified, uncomplicated (3) Cocaine use disorder: Status: Acute Code(s): F14.10 - Cocaine abuse, uncomplicated Plan presents with opioid and cocaine use disorder. Does have a history of 3 year sobriety. Does have a history of PTSD, but declines to currently discussed trauma history. Reported history of bipolar disorder, but does not appear to have any clear hypomanic or manic episodes, but rather affective instability and bizarre behavior, which occurs in the context of substance use. Recent stressors include father being diagnosed with lung cancer 6 months ago. Overall agreed to methadone 40 mg for detox. Uncertainty regarding long-term for/maintenance treatment for opioid use disorder. Will start Seroquel, Vistaril and clonidine. Reported Seroquel dose in the past was 100 mg in the morning and 300 mg at bedtime i.e. during previous Section 35 treatment and reports this was very helpful her move, sleep anxiety. Will start 100 mg bedtime and increase by 100 mg per day Patient educated on: diagnosis, medication risk/benefits and substance abuse Informed Consent: understands Reason for continued inpatient stay Substantial Risk for: harm to self Statement Statement: I have reviewed the history and physical and performed a pertinent examination on my patient. No changes have occurred unless specified. If the History and Physical was not performed prior to admission, the Hospitalist's service will be consulted for completing the admission physical. Time Spent With Patient Time: Total time managing care of this patient today ____ minutes.
[2023-05-30] MEDS: methADONE HCl 20 MG/2 ML ORAL.CONC 40 MG PO (14:21)
[2023-05-30] MEDS: hydrOXYzine HCL 50 MG TABLET PO ×2 (14:21→20:06)
[2023-05-30] MEDS: cloNIDine HCL 0.2 MG TABLET PO (14:21)
--- NOTE | 2023-05-30 14:51 | MHC.RECOVRN ---
Met with pt in 319-1 after consult placed to Addiction Medicine for cocaine use disorder.? Chart review completed and received report from floor nurse Kavya. Pt had presented to the ED with SI with plan to overdose.? Pt was admitted to the floor psych assessment, monitoring and stabilization.? Pt?s toxicology positive for opiates and cocaine.? She is currently on comfort medications with minimal effect.? Upon assessment pt is lying in bed and responds to voice.? She is verbalizing W/D sx to include Hot/cold, anxiety, restlessness and agitation and achy.? She has been receiving comfort meds to include hydroxyzine, clonidine, and Ativan with minimal effect.? T/W observed pt?s face to be moist, and she was presenting as very uncomfortable.? Pt reports that she has been using ?a lot? of cocaine, heroin and fentanyl via IV and nasal route for the past 8 months.? She recently was D/C from [facility] where she was receiving methadone at a reported dose of 65mg.? She reports her last dose was approximately 1 week ago.? She reports she has participated in [facility] methadone clinic in the past for OUD and would like to start this MAT again.? She would like to be connected to [facility] [place].? T/W consulted with SYSTEMS SOFTWARE SPECIALIST Judith Mckeon re:? pt?s request to re start methadone.? Last dose verification was obtained from [facility] nursing suspect artist supervisor Leesa Tristan stating that pt?s last dose was 15mg on 05/26/23 at 5:13AM.? Request was placed to pt?s ordering provider Dr. Araya to start pt. on methadone 40mg QD. Medication was ordered and T/W will F/U with pt. tomorrow to assess effectiveness of dosing along with need for further resources. Report to ACS team and pt?s nurse Rashid. T/W available as needed and ACS team to offer ongoing support during pt's stay.
[2023-05-30 20:00] VITALS: BP 121/70; PULSE 98; RESP 16; TEMP 36.9; O2SAT 99
[2023-05-30] MEDS: QUEtiapine Fumarate 100 MG TABLET PO (20:06)
[2023-05-31] MEDS: traZODone HCL 50 MG TABLET PO (03:16)
[2023-05-31] MEDS: hydrOXYzine HCL 50 MG TABLET PO ×2 (03:17→21:55)
[2023-05-31 07:35] VITALS: BP 122/67; PULSE 64; RESP 16; TEMP 36.7; O2SAT 97
[2023-05-31] MEDS: Folic Acid 1 MG TABLET PO (08:12)
[2023-05-31] MEDS: Thiamine HCL 100 MG TABLET PO (08:13)
[2023-05-31] MEDS: Multivitamin TABLET 1 TAB PO (08:13)
[2023-05-31] MEDS: methADONE HCl 20 MG/2 ML ORAL.CONC 40 MG PO (08:14)
[2023-05-31] MEDS: LORazepam 1 MG TABLET PO ×3 (08:39→21:55)
--- NOTE | 2023-05-31 11:28 | MHC.RECOVRN ---
Met with pt in 319-1 to follow up and provide support.? Pt lying in bed awake, alert, easily engages in conversation.? She started her methadone 40mg yesterday for W/D sx and reports she was able to sleep much better with it. He last COWS this AM was a 2 for anxiety and runny nose and she received PRN medication with some effect. ?? Pt denies other concerns at this time.? T/w available as needed
--- NOTE | 2023-05-31 12:06 | P.PNPSI_ITS ---
Subjective Subjective Date of Service: 05/31/23 Reason For Visit: crisis eval, wants to hurt herself Subjective Notes: Conditional Voluntary Interim History: met with patient. Discussed with Nursing. Overall patient feeling much better from a detox perspective today. Feeling more organized. Denies depression. No SI. No evidence of psychosis. No med concerns. Sleeping better. Medication Compliance: Yes Side effects from medications: No Attending Groups: No Review of Systems Acute medical concerns: No Review of Systems Review of Systems denied current withdrawal symptoms Mental Status Exam Mental Status Exam Narrative: Pleasant. Engaged. Hospital clothing. Fairly presented. Alert and oriented. less anxious. Less hopeless. Denied current SI. No HI. No agitation or psychosis. Insight judgment fair Diagnostics Vital Signs (24Hr): Vital Signs - 24 hr 05/30/23 20:00 05/31/23 07:35 Temperature 98.5 F 98.1 F Pulse Rate 98 64 Respiratory Rate 16 16 Blood Pressure 121/70 122/67 Pulse Oximetry 99 97 Oxygen Delivery Method Room Air Room Air BMI result Body Mass Index 22.9 Labs 05/29/23 00:18 05/29/23 00:18 Labs: Laboratory Results - last 48 hr 05/29/23 11:18 Urine RBC 0-2 Urine WBC 0-5 Ur Squamous Epith Cells 6-10 Calcium Oxalate Crystal Present Urine Bacteria 4+ Hyaline Casts 0-2 Medications Medications Current Medications Acetaminophen (Acetaminophen 325 Mg Tablet) 650 mg PO Q6H PRN PRN Reason: Headache/Pain Mild Scale (1-3) Last Admin: 05/30/23 10:12 Dose: 650 mg Al Hydroxide/Mg Hydroxide (Magnesium Hydrox/Alum Hydrox 30 Ml Oral.Susp) 30 ml PO Q6H PRN PRN Reason: Heartburn/Nausea Last Admin: 05/30/23 08:48 Dose: 30 ml Clonidine HCl (Clonidine Hcl 0.1 Mg Tablet) 0.1 mg PO BID PRN; Protocol PRN Reason: withdrawal Last Admin: 05/30/23 20:06 Dose: 0.1 mg Folic Acid (Folic Acid 1 Mg Tablet) 1 mg PO DAILY NATALY Last Admin: 05/31/23 08:12 Dose: 1 mg Haloperidol (Haloperidol 5 Mg Tablet) 5 mg PO Q4H PRN PRN Reason: valerie,psychosis,agitation Last Admin: 05/30/23 14:27 Dose: 5 mg Hydroxyzine HCl (Hydroxyzine Hcl 50 Mg Tablet) 50 mg PO Q6H PRN PRN Reason: Anxiety Last Admin: 05/31/23 03:17 Dose: 50 mg Lorazepam (Lorazepam 1 Mg Tablet) 1 mg PO Q4H PRN PRN Reason: severe anxiety Last Admin: 05/31/23 08:39 Dose: 1 mg Magnesium Hydroxide (Milk Of Magnesia 30 Ml Oral.Susp) 30 ml PO DAILY PRN PRN Reason: Constipation Methadone HCl (Methadone Hcl 20 Mg/2 Ml Oral.Conc) 40 mg PO DAILY [facility] Last Admin: 05/31/23 08:14 Dose: 40 mg Multivitamins/Vitamin C (Multivitamin Tablet) 1 tab PO DAILY NATALY Last Admin: 05/31/23 08:13 Dose: 1 tab Nicotine Polacrilex (Nicotine Polacrilex 2 Mg Gum) 4 mg BUCCAL Q2H PRN PRN Reason: Nicotine Cravings Last Admin: 05/30/23 10:36 Dose: 4 mg Quetiapine Fumarate (Quetiapine Fumarate 100 Mg Tablet) 100 mg PO BEDTIME [facility] Last Admin: 05/30/23 20:06 Dose: 100 mg Thiamine HCl (Thiamine Hcl 100 Mg Tablet) 100 mg PO DAILY [facility] Last Admin: 05/31/23 08:13 Dose: 100 mg Trazodone HCl (Trazodone Hcl 50 Mg Tablet) 50 mg PO BEDTIME MRX1 PRN PRN Reason: Insomnia Last Admin: 05/31/23 03:16 Dose: 50 mg Allergies Allergies Allergy/AdvReac Type Severity Reaction Status Date / Time No Known Allergies Allergy Verified 05/28/23 18:13 Assessment & Plan Assessment & Plan (1) PTSD (post-traumatic stress disorder): Status: Acute Code(s): F43.10 - Post-traumatic stress disorder, unspecified (2) Opioid use disorder: Status: Acute Code(s): F11.90 - Opioid use, unspecified, uncomplicated (3) Cocaine use disorder: Status: Acute Code(s): F14.10 - Cocaine abuse, uncomplicated Plan presents with opioid and cocaine use disorder. Does have a history of 3 year sobriety. Does have a history of PTSD, but declines to currently discussed trauma history. Reported history of bipolar disorder, but does not appear to have any clear hypomanic or manic episodes, but rather affective instability and bizarre behavior, which occurs in the context of substance use. Recent stressors include father being diagnosed with lung cancer 6 months ago. Overall agreed to methadone 40 mg for detox. Uncertainty regarding long-term for/maintenance treatment for opioid use disorder. Will start Seroquel, Vistaril and clonidine. Reported Seroquel dose in the past was 100 mg in the morning and 300 mg at bedtime i.e. during previous Section 35 treatment and reports this was very helpful her move, sleep anxiety. Will start 100 mg bedtime and increase by 100 mg per day 05/30: increase seroquel to 200mg bedtime- prev on 100am and 300 hs Reason for continued inpatient stay Substantial Risk for: inability to function and rapid decompensation Time Spent With Patient Time: Total time managing care of this patient today ____ minutes.
[2023-05-31] MEDS: Acetaminophen 325 MG TABLET 650 MG PO (17:31)
[2023-05-31] MEDS: cloNIDine HCL 0.1 MG TABLET PO ×2 (17:31→21:56)
--- NOTE | 2023-05-31 17:33 | PM.EVENT ---
Event Note Date of Service: 05/31/23 Event Note: Patient is a 32-year-old female with a PMH significant for polysubstance use disorder and bipolar disorder who was admitted to [facility] psychiatry unit for increasing depression with SI and bizarre behaviors medical consult for evaluation right middle finger pain and IVDU injection site. Patient reports injected right middle finger 2.5-3 weeks ago. Area has been swollen and painful since, with gradually worsening erythema. Patient was previously at [facility] for detox, and started on a course of antibiotics for cellulitis. However, patient left A before completing course of antibiotics. Denies any purulent discharge from area. Patient also has 2 other areas of concern at injection sites: 1 on her left breast and the other on the dorsal aspect of her left foot. Both of these areas have healing scabs with minimal ring of erythema surrounding them. No fluctuance or induration noted. Area on left breast previously with purulent discharge, though none recently. Right middle finger noted to have hematoma with swelling, mild warmth, and mild surrounding erythema extending to base the finger. As pictured below. Will treat with doxycycline 100 mg p.o. b.i.d. x5 days. Time Spent With Patient Time: Total time managing care of this patient today ____ minutes.
[2023-05-31] MEDS: Nicotine Polacrilex 2 MG GUM 4 MG BUCCAL (17:40)
[2023-05-31] MEDS: Doxycycline Monohydrate 100 MG CAPSULE PO (17:40)
[2023-05-31 21:30] VITALS: BP 102/58; PULSE 68; RESP 16; TEMP 36.8; O2SAT 98
[2023-05-31] MEDS: QUEtiapine Fumarate 200 MG TABLET PO (21:55)
[2023-05-31] MEDS: HaloperidoL 5 MG TABLET PO (21:56)
[2023-06-01 06:00] VITALS: BP 112/62; PULSE 69; RESP 14; TEMP 36.8; O2SAT 99
[2023-06-01] MEDS: Doxycycline Monohydrate 100 MG CAPSULE PO ×2 (06:34→17:52)
[2023-06-01] MEDS: Folic Acid 1 MG TABLET PO (08:11)
[2023-06-01] MEDS: Multivitamin TABLET 1 TAB PO (08:12)
[2023-06-01] MEDS: Thiamine HCL 100 MG TABLET PO (08:12)
[2023-06-01] MEDS: methADONE HCl 20 MG/2 ML ORAL.CONC 40 MG PO (08:13)
[2023-06-01] MEDS: cloNIDine HCL 0.1 MG TABLET PO ×2 (08:51→20:19)
[2023-06-01] MEDS: LORazepam 1 MG TABLET PO ×2 (08:51→15:35)
--- NOTE | 2023-06-01 12:33 | MHC.RECOVRN ---
Met with pt to follow up regarding methadone titration. Pt laying in bed, awake, alert, easily engages in conversation, appears comfortable. Pt reports continued withdrawal symptoms including feeling hot/cold, body aches, anxiety. Pt reports being able to sleep here and there. Reports poor appetite. Pt reports she has been stable at methadone doses ranging from 60 mg to 160 mg. Pt prefers to not be above 100 mg. Pt reports prior to admission she had been using heroin/fentanyl, 3-4 bundles daily. Pt would like to continue titration and to continue receiving methadone at [facility]. Discussed with Judith Mckeon APRN.
--- NOTE | 2023-06-01 14:58 | P.PNPSI_ITS ---
Subjective Subjective Date of Service: 06/01/23 Reason For Visit: crisis eval, wants to hurt herself Interim History: calm, cooperative, pleasant. asking for increased seroquel at HS, increased to 300 mg. also reports PTSD, agrees to trial of prazosin for nightmares/insomnia. also used to be on 140 mg, thinks present 40 isn't going to be enough, agreeable to increase methadone to 45 mg as of tomorrow. interested in referrals for therapy and psychiatry at [facility] in [place]. per staff, w/drawn. taking meds. not attending groups. mild withdrawal Sx. started on antibx for injection site infection. slept 7-8 hours. Mental Status Exam Mental Status Exam Narrative: Pleasant. Engaged. street clothes. pleasant, engaged, but somnolent Anxious. no SI/HI/AVH expressed. Insight judgment fair Diagnostics Vital Signs (24Hr): Vital Signs - 24 hr 05/31/23 21:30 06/01/23 06:00 Temperature 98.3 F 98.3 F Pulse Rate 68 69 Respiratory Rate 16 14 Blood Pressure 102/58 L 112/62 Pulse Oximetry 98 99 Oxygen Delivery Method Room Air Room Air BMI result Body Mass Index 22.9 Labs 05/29/23 00:18 05/29/23 00:18 Medications Medications Current Medications Acetaminophen (Acetaminophen 325 Mg Tablet) 650 mg PO Q6H PRN PRN Reason: Headache/Pain Mild Scale (1-3) Last Admin: 05/31/23 17:31 Dose: 650 mg Al Hydroxide/Mg Hydroxide (Magnesium Hydrox/Alum Hydrox 30 Ml Oral.Susp) 30 ml PO Q6H PRN PRN Reason: Heartburn/Nausea Last Admin: 05/30/23 08:48 Dose: 30 ml Clonidine HCl (Clonidine Hcl 0.1 Mg Tablet) 0.1 mg PO BID PRN; Protocol PRN Reason: withdrawal Last Admin: 06/01/23 08:51 Dose: 0.1 mg Doxycycline Monohydrate (Doxycycline Monohydrate 100 Mg Capsule) 100 mg PO Q12H NATALY Stop: 06/05/23 17:59 Last Admin: 06/01/23 06:34 Dose: 100 mg Folic Acid (Folic Acid 1 Mg Tablet) 1 mg PO DAILY NATALY Last Admin: 06/01/23 08:11 Dose: 1 mg Haloperidol (Haloperidol 5 Mg Tablet) 5 mg PO Q4H PRN PRN Reason: valerie,psychosis,agitation Last Admin: 05/31/23 21:56 Dose: 5 mg Hydroxyzine HCl (Hydroxyzine Hcl 50 Mg Tablet) 50 mg PO Q6H PRN PRN Reason: Anxiety Last Admin: 05/31/23 21:55 Dose: 50 mg Lorazepam (Lorazepam 1 Mg Tablet) 1 mg PO Q4H PRN PRN Reason: severe anxiety Last Admin: 06/01/23 08:51 Dose: 1 mg Magnesium Hydroxide (Milk Of Magnesia 30 Ml Oral.Susp) 30 ml PO DAILY PRN PRN Reason: Constipation Methadone HCl (Methadone Hcl 20 Mg/2 Ml Oral.Conc) 40 mg PO DAILY NATALY Last Admin: 06/01/23 08:13 Dose: 40 mg Multivitamins/Vitamin C (Multivitamin Tablet) 1 tab PO DAILY NATALY Last Admin: 06/01/23 08:12 Dose: 1 tab Nicotine Polacrilex (Nicotine Polacrilex 2 Mg Gum) 4 mg BUCCAL Q2H PRN PRN Reason: Nicotine Cravings Last Admin: 05/31/23 17:40 Dose: 4 mg Prazosin HCl (Prazosin Hcl 1 Mg Capsule) 1 mg PO BEDTIME NATALY; Protocol Quetiapine Fumarate (Quetiapine Fumarate 300 Mg Tablet) 300 mg PO BEDTIME NATALY Thiamine HCl (Thiamine Hcl 100 Mg Tablet) 100 mg PO DAILY NATALY Last Admin: 06/01/23 08:12 Dose: 100 mg Trazodone HCl (Trazodone Hcl 50 Mg Tablet) 50 mg PO BEDTIME MRX1 PRN PRN Reason: Insomnia Last Admin: 05/31/23 03:16 Dose: 50 mg Allergies Allergies Allergy/AdvReac Type Severity Reaction Status Date / Time No Known Allergies Allergy Verified 05/28/23 18:13 Assessment & Plan Assessment & Plan (1) PTSD (post-traumatic stress disorder): Status: Acute Code(s): F43.10 - Post-traumatic stress disorder, unspecified (2) Opioid use disorder: Status: Acute Code(s): F11.90 - Opioid use, unspecified, uncomplicated (3) Cocaine use disorder: Status: Acute Code(s): F14.10 - Cocaine abuse, uncomplicated Plan presents with opioid and cocaine use disorder. Does have a history of 3 year sobriety. Does have a history of PTSD, but declines to currently discussed trauma history. Reported history of bipolar disorder, but does not appear to have any clear hypomanic or manic episodes, but rather affective instability and bizarre behavior, which occurs in the context of substance use. Recent stressors include father being diagnosed with lung cancer 6 months ago. Overall agreed to methadone 40 mg for detox. Uncertainty regarding long-term for/maintenance treatment for opioid use disorder. Will start Seroquel, Vistaril and clonidine. Reported Seroquel dose in the past was 100 mg in the morning and 300 mg at bedtime i.e. during previous Section 35 treatment and reports this was very helpful her move, sleep anxiety. Will start 100 mg bedtime and increase by 100 mg per day 05/30: increase seroquel to 200mg bedtime- prev on 100am and 300 hs 05/31: increase HS seroquel to 300 and start prazosin 1mg at HS. increase methadone to 45 mg as of tomorrow. planning to DC . Reason for continued inpatient stay Substantial Risk for: inability to function and rapid decompensation Time Spent With Patient Time: Total time managing care of this patient today __25__ minutes.
[2023-06-01 16:00] VITALS: BP 100/55; PULSE 84; RESP 16; TEMP 37.2; O2SAT 99
[2023-06-01] MEDS: hydrOXYzine HCL 50 MG TABLET PO (18:11)
[2023-06-01 19:48] VITALS: BP 113/62; PULSE 105; RESP 18; TEMP 36.9; O2SAT 99
[2023-06-01] MEDS: Nicotine Polacrilex 2 MG GUM 4 MG BUCCAL (19:57)
[2023-06-01] MEDS: Prazosin HCL 1 MG CAPSULE PO (20:18)
[2023-06-01] MEDS: QUEtiapine Fumarate 300 MG TABLET PO (20:19)
[2023-06-02] MEDS: hydrOXYzine HCL 50 MG TABLET PO ×3 (00:16→20:29)
[2023-06-02] MEDS: traZODone HCL 50 MG TABLET PO ×2 (00:16→02:52)
[2023-06-02] MEDS: cloNIDine HCL 0.1 MG TABLET PO ×2 (02:52→16:55)
[2023-06-02] MEDS: LORazepam 1 MG TABLET PO ×3 (02:52→20:30)
[2023-06-02] MEDS: HaloperidoL 5 MG TABLET PO (02:52)
[2023-06-02 06:00] VITALS: BP 116/59; PULSE 76; RESP 14; TEMP 36.9; O2SAT 96
[2023-06-02 08:00] VITALS: PULSE 96
[2023-06-02] MEDS: methADONE HCl 20 MG/2 ML ORAL.CONC 45 MG PO (09:03)
[2023-06-02] MEDS: Doxycycline Monohydrate 100 MG CAPSULE PO ×2 (09:05→20:28)
[2023-06-02] MEDS: Multivitamin TABLET 1 TAB PO (09:05)
[2023-06-02] MEDS: Thiamine HCL 100 MG TABLET PO (09:05)
[2023-06-02] MEDS: Folic Acid 1 MG TABLET PO (09:06)
--- NOTE | 2023-06-02 11:32 | P.DS_ITS ---
DS: Providers Provider Date of Service: 06/02/23 Date of admission: 05/29/23 16:45 Primary care physician: Unknown Physician Consults: 05/29/23 22:47 Addiction Medicine Stat Consulting Provider: Addiction Covering Reason for consultation: Cocaine use disorder Has provider been notified: Yes 05/31/23 16:50 Consult to Hospitalist Routine Comment: Consulting Provider: Hospitalist Reason For Exam: r/o infected injection sites DS: Diagnosis Discharge Diagnosis (1) PTSD (post-traumatic stress disorder): Status: Acute (2) Opioid use disorder: Status: Acute (3) Cocaine use disorder: Status: Acute DS: Medications Discharge Medications Home Medications: Previous Rx's ?Medication ?Instructions ?Recorded ondansetron 4 mg disintegrating 4 mg PO Q6H PRN nausea and 01/14/21 tablet vomiting #10 tabs clonidine HCl 0.1 mg tablet 0.1 mg PO BID PRN withdrawal 30 06/02/23 days #60 tabs doxycycline monohydrate 100 mg 100 mg PO Q12H 10 days #20 caps 06/02/23 capsule hydroxyzine HCl 50 mg tablet 50 mg PO BID PRN Anxiety 30 days 06/02/23 #60 tabs methadone 10 mg/mL oral 45 mg (4.5 mL) PO DAILY #0 mL 06/02/23 concentrate (Methadose) nicotine (polacrilex) 2 mg gum 4 mg buccal Q2H PRN Nicotine 06/02/23 Cravings 30 days #120 ea nicotine 21 mg/24 hr daily 1 patch transdermal DAILY 28 days 06/02/23 transdermal patch #28 ea prazosin 1 mg capsule 2 mg PO BEDTIME 30 days #60 caps 06/02/23 quetiapine 300 mg tablet 300 mg PO BEDTIME 30 days #30 tabs 06/02/23 quetiapine 50 mg tablet (Seroquel) 50 mg PO BEDTIME PRN insomnia 30 06/02/23 days #30 tabs Mental Status Exam Mental Status Exam Narrative: Pleasant. Engaged. street clothes and hospital garb. pleasant, engaged, but somnolent Anxious. no SI/HI/AVH. Insight judgment fair Data Data Completed and Pending Completed studies during hospitalization [Text1]: 05/28/23 05/28/23 05/29/23 19:59 20:22 00:18 WBC 15.7 H RBC 5.00 Hgb 14.3 Hct 41.4 MCV 82.8 MCH 28.6 MCHC 34.5 RDW 13.4 Plt Count 490 H D MPV 9.8 Immature Gran % (Auto) 1.4 H Neut % (Auto) 64.9 Lymph % (Auto) 26.2 Colbert % (Auto) 7.0 Eos % (Auto) 0.1 Baso % (Auto) 0.4 Lymph # (Auto) 4.1 Colbert # (Auto) 1.1 Eos # (Auto) 0.0 Baso # (Auto) 0.1 Abs Immat Gran (auto) 0.22 H Absolute Neuts (auto) 10.2 H Absolute Nucleated RBC 0.000 Nucleated RBC % (auto) 0.0 Sodium 141 Potassium 4.1 Chloride 106 Carbon Dioxide 21 L Anion Gap 18 BUN 23 H Creatinine 0.70 Estim Creat Clear Calc 119.4 Estimated GFR > 60 Random Glucose 93 Calcium 9.5 Total Bilirubin 0.4 AST 29 ALT 15 Alkaline Phosphatase 61 Total Protein 8.1 H Albumin 4.6 Urine Color Urine Appearance Urine pH Ur Specific Star Urine Protein Urine Glucose (UA) Urine Ketones Urine Blood Urine Nitrite Ur Leukocyte Esterase Urine RBC Urine WBC Ur Squamous Epith Cells Calcium Oxalate Crystal Urine Bacteria Hyaline Casts Urine Opiates Screen Urine Fentanyl Screen Ur Barbiturates Screen Ur Phencyclidine Scrn Ur Amphetamines Screen U Benzodiazepines Scrn Urine Cocaine Screen U Marijuana (THC) Screen Ethyl Alcohol < 10 COVID-19 ([facility]) Cancelled Negative COVID-19 Clin Com Cancelled See Note 05/29/23 05/29/23 11:18 11:19 WBC RBC Hgb Hct MCV MCH MCHC RDW Plt Count MPV Immature Gran % (Auto) Neut % (Auto) Lymph % (Auto) Colbert % (Auto) Eos % (Auto) Baso % (Auto) Lymph # (Auto) Colbert # (Auto) Eos # (Auto) Baso # (Auto) Abs Immat Gran (auto) Absolute Neuts (auto) Absolute Nucleated RBC Nucleated RBC % (auto) Sodium Potassium Chloride Carbon Dioxide Anion Gap BUN Creatinine Estim Creat Clear Calc Estimated GFR Random Glucose Calcium Total Bilirubin AST ALT Alkaline Phosphatase Total Protein Albumin Urine Color Dark Yellow Urine Appearance Cloudy Urine pH 6.0 Ur Specific Star >= 1.030 H Urine Protein 30 (1+) H Urine Glucose (UA) Negative Urine Ketones 40 Urine Blood Negative Urine Nitrite Negative Ur Leukocyte Esterase Trace H Urine RBC 0-2 Urine WBC 0-5 Ur Squamous Epith Cells 6-10 Calcium Oxalate Crystal Present Urine Bacteria 4+ Hyaline Casts 0-2 Urine Opiates Screen Not Detected Urine Fentanyl Screen POSITIVE H Ur Barbiturates Screen Not Detected Ur Phencyclidine Scrn Not Detected Ur Amphetamines Screen Not Detected U Benzodiazepines Scrn POSITIVE H Urine Cocaine Screen POSITIVE H U Marijuana (THC) Screen Not Detected Ethyl Alcohol COVID-19 ([facility]) COVID-19 Clin Com DS: Summary Hospital Course Hospital Course: per 05/29 admission note: As per ED triage note, patient was reporting suicidal thoughts of overdosing. Was at father's house jumping into people's cars and acting bizarrely. Had just been discharged from [facility]. As per ED Note 05/28/23: 32-year-old female with past medical history of bipolar and substance abuse presents to the ED for suicidal and also randomly going to [employer] course not answer many questions. Patient was seen at [facility] for similiar presentsation and was discharged yesterday. As per patient's sister patient started having symptoms when her boyfriend became sick and sepsis in hospital. Patient's psych meds and does not follow-up with a therapist. She states patient also IV drug use Today: Patient reports little recollection of admission circumstances. Did endorse feeling down and depressed recently and intermittent suicidal thoughts. Sleep has been poor. Denied auditory hallucinations. Recent substance use unclear i.e. 1 last used anything. Tox was pes positive for cocaine, heroin and fentanyl, which patient openly endorses having issues with. Met with the addictions Team today and methadone 40 mg recommended and leasing with prior program at [facility] and. Patient reports being on methadone through [facility] in over 1 year ago. Reports wanting help with medications and detoxing and stabilizing. Reports Seroquel, hydroxyzine, clonidine were helpful in the past ? 3-4 months ago during a [facility] treatment. Also mentioned Klonopin and Ativan. No alcohol use. Stressors include father being diagnosed with stage III lung cancer 6 months ago. Reports being very close to him as he raise both her and patient's sister who is 1 year younger. Sister works for [employer] and supportive of patient. Unclear work situation as collateral mentioned patient had not been working, but was running down the street recently stating she had to go to work. 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 Overall agreed to methadone 40 mg for detox. Uncertainty regarding long-term for/maintenance treatment for opioid use disorder. Will start Seroquel, Vistaril and clonidine. Reported Seroquel dose in the past was 100 mg in the morning and 300 mg at bedtime i.e. during previous [facility] treatment and reports this was very helpful her move, sleep anxiety. Will start 100 mg bedtime and increase by 100 mg per day. Past Psychiatric History: Reports diagnosis of bipolar disorder, multiple personality disorder and PTSD. On further exploration, patient does not have any evidence of hypomanic or manic episodes and describes getting angry quickly or acting bizarrely for example going into people's cars. Reports these do not happen when she is sober. Does endorse history of depression. To suicide attempts and the last was a number of years ago by overdose. Does not have current treaters. Recently at [facility] for 1 day with bizarre behavior. Patient reports being on methadone through [facility] in over 1 year ago. Reports wanting help with medications and detoxing and stabilizing. Reports Seroquel, hydroxyzine, clonidine were helpful in the past ? 3-4 months ago during a [facility] treatment. Also mentioned Klonopin and Ativan Medical Evaluation Reviewed: Yes [facility] Medical History (Updated 05/30/23 @ 15:58 by James Araya MD) Drug abuse Social History: Reports currently living with sister. Sister supportive. Single. No children. Denied legal issues. Reports some college. 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 Adamantly denied any issues with alcohol. Did endorse having a trauma history but reluctant to discuss same. Stressors include her father being diagnosed with stage III lung cancer 6 months ago. Substance History: Opioid and cocaine use disorder. Was sober for 3 years and relapsed in 2020. Patient reports being on methadone through [facility] in over 1 year ago. Reports wanting help with medications and detoxing and stabilizing. Re ports Seroquel, hydroxyzine, clonidine were helpful in the past ? 3-4 months ago during a [facility] treatment. Also mentioned Klonopin and Ativan Trauma History: Did endorse having a trauma history but reluctant to discuss same. Precis: presents with opioid and cocaine use disorder. Does have a history of 3 year sobriety. Does have a history of PTSD, but declines to currently discussed t rauma history. Reported history of bipolar disorder, but does not appear to have any clear hypomanic or manic episodes, but rather affective instability and bizarre behavior, which occurs in the context of substance use. Recent stressors include father being diagnosed with lung cancer 6 months ago. Overall agreed to methadone 40 mg for detox. Uncertainty regarding long-term for/maintenance treatment for opioid use disorder. 05/29: Will start Seroquel, Vistaril and clonidine. Reported Seroquel dose in the past was 100 mg in the morning and 300 mg at bedtime i.e. during previous [facility] treatment and reports this was very helpful her move, sleep anxiety. Will start 100 mg bedtime and increase by 100 mg per day. 05/30: increase seroquel to 200mg bedtime- prev on 100am and 300 hs 05/31: increase HS seroquel to 300 and start prazosin 1mg at HS. increase methadone to 45 mg as of tomorrow. planning to DC . 06/01: prazosin increased to 2 mg at HS. meds reviewed, reconciled, prescribed. discharge planned for tomorrow. 06/02: stable. discharged as per plan. Time Spent with Patient Time attestation: Total time managing care of this patient today __45__ minutes. Discharge Plan Discharge Anticipated Discharge Date/Time: 06/03/23 16:00 Patient Disposition: Home, Self-Care Discharge Diagnosis: PTSD, Chronic Opioid Use Disorder Cocaine Use Disorder Referrals: Therapy & Psychiatry [Other] - 1 Week (*Please present to the agency above, Thursday through Thursday during the hours of 10am and 12pm, as a walk in, in order to obtain outpatient mental health treatment*) Methadone Maintenance [Other] - 1 Week (*Please bring your photo ID, insurance card, and the medications you are prescribed. You will also need to know your file ID number for the clinic which will be #[id number]*) [facility] [Provider Group] - 1 Week Discharge Medications: New nicotine (polacrilex) 2 mg Gum 4 mg buccal Q2H PRN (Reason: Nicotine Cravings) 30 Days Qty: 120 0RF clonidine HCl 0.1 mg Tablet 0.1 mg PO BID PRN (Reason: withdrawal) 30 Days Qty: 60 0RF Protocol: Hold for SBP< HOLD for SBP < : 90 quetiapine 300 mg Tablet 300 mg PO BEDTIME 30 Days Qty: 30 0RF prazosin 1 mg Capsule 2 mg PO BEDTIME 30 Days Qty: 60 0RF Protocol: Hold for SBP< HOLD for SBP < : 90 hydroxyzine HCl 50 mg Tablet 50 mg PO BID PRN (Reason: Anxiety) 30 Days Qty: 60 0RF methadone [Methadose] 10 mg/mL Concentrate 45 mg PO DAILY Qty: 0 0RF Rx Instructions: Partial Fill upon patient request. doxycycline monohydrate 100 mg Capsule 100 mg PO Q12H 10 Days Qty: 20 0RF nicotine 21 mg/24 hr patch 24 hour 1 patch transdermal DAILY 28 Days Qty: 28 0RF quetiapine [Seroquel] 50 mg tablet 50 mg PO BEDTIME PRN (Reason: insomnia) 30 Days Qty: 30 0RF Continued ondansetron 4 mg tablet,disintegrating 4 mg PO Q6H PRN (Reason: nausea and vomiting) Qty: 10 0RF Discontinued prenat.vits,boaz,[id number] Tablet 1 tab PO DAILY Qty: 30 0RF Discharge Orders: Discharge Order (Routine); Ordered 06/03/23 Ordered By: Kermit Beth Diet: Advance to usual diet Activity on Discharge: As tolerated Stand Alone Forms: Patient Portal Discharge page, Community Support Print Language: Yoruba Care Plan Goals: remain safe, stable, and sober in the outpatient treatment setting Health Concerns: IVDU Plan of Treatment: take medications as prescribed, attend appointments as scheduled Assessment: not at imminent risk of harm to self or others
[2023-06-02] MEDS: Nicotine Polacrilex 2 MG GUM 4 MG BUCCAL (14:29)
[2023-06-02 16:53] VITALS: BP 116/62; PULSE 67
[2023-06-02 19:50] VITALS: BP 116/53; PULSE 90; RESP 16; TEMP 36.9; O2SAT 100
[2023-06-02] MEDS: QUEtiapine Fumarate 300 MG TABLET PO (20:29)
[2023-06-02] MEDS: Prazosin HCL 1 MG CAPSULE 2 MG PO (20:29)
[2023-06-03] MEDS: traZODone HCL 50 MG TABLET PO (00:49)
[2023-06-03] MEDS: hydrOXYzine HCL 50 MG TABLET PO ×2 (04:42→13:20)
[2023-06-03] MEDS: LORazepam 1 MG TABLET PO ×2 (04:43→13:20)
[2023-06-03 06:00] VITALS: BP 168/80; PULSE 85; RESP 14; TEMP 36.8; O2SAT 96
[2023-06-03] MEDS: cloNIDine HCL 0.1 MG TABLET PO ×2 (07:32→14:47)
[2023-06-03] MEDS: methADONE HCl 20 MG/2 ML ORAL.CONC 45 MG PO (08:21)
[2023-06-03] MEDS: Multivitamin TABLET 1 TAB PO (08:23)
[2023-06-03] MEDS: Folic Acid 1 MG TABLET PO (08:23)
[2023-06-03] MEDS: Doxycycline Monohydrate 100 MG CAPSULE PO (08:23)
[2023-06-03] MEDS: Thiamine HCL 100 MG TABLET PO (08:23)
[2023-06-03] MEDS: Nicotine Polacrilex 2 MG GUM 4 MG BUCCAL (13:20)
[2023-06-03] MEDS: HaloperidoL 5 MG TABLET PO (14:49)
--- NOTE | 2023-06-11 21:12 | PC.NURSE ---
late entry for 05/29/23 1730/ Ativan 1mg PO was administered at bedside for anxiety in advance of transfer to the floor. Pt did not have a bracelette on at the time and therefor scanning wasn't possible.
== END 2023-06-03 15:49 | disposition home or self-care (01) | DRG 882 ==
LOC: HO.ED 05-29 18:21 → HO.PADLT16 05-29 18:49
PROVIDERS: Physician Assistant; Admitting Provider Psychiatry & Neurology Psychiatry; Emergency Provider Emergency Medicine; Visit Provider Psychiatry & Neurology Psychiatry
DX: F43.12 Post-traumatic stress disorder, chronic (principal); R45.851 Suicidal ideations; Z59.02 Unsheltered homelessness; F11.23 Opioid dependence with withdrawal; F14.10 Cocaine abuse, uncomplicated; Z20.822 Contact with and (suspected) exposure to COVID-19; Z79.899 Other long term (current) drug therapy
CPT/HCPCS: 36415; 80053; 80307; 81001; 85025; 87635; 93005; 99285; S9485

== ENCOUNTER → 2023-05-29 12:14 | Outpatient (BNV) | payer SELFPAY | PROVIDERS: Emergency Provider Emergency Medicine; Visit Provider Internal Medicine Cardiovascular Disease | DX: R94.31 Abnormal electrocardiogram [ECG] [EKG] (principal) | CPT/HCPCS: 93010 ==

== ENCOUNTER → 2023-05-29 16:45 | Outpatient (BNV) | payer MEDICARE, SELFPAY | PROVIDERS: Admitting Provider Psychiatry & Neurology Psychiatry; Emergency Provider Emergency Medicine; Visit Provider Psychiatry & Neurology Psychiatry | DX: F14.10 Cocaine abuse, uncomplicated (principal); F43.11 Post-traumatic stress disorder, acute; F11.90 Opioid use, unspecified, uncomplicated | CPT/HCPCS: 90792; 99231; 99232; 99239 ==